=== PATIENT | female | born 1975 | race Asian ===

== ENCOUNTER 2025-08-17 21:44 | Emergency (ER) | payer BC, MEDICAID, SELFPAY ==
[2025-08-17 21:44] VITALS: BMI 41.5
--- NOTE | 2025-08-17 21:49 | XR_ITS ---
Examination: Knee, left, 3 views Technique: Knee AP, lateral, oblique 3 views Date and time of exam: August 17, 2025, 1 2150 hours INDICATIONS: Knee pain 2 weeks getting worse. FINDINGS: Moderate osteopenia Moderate narrowing medial joint space Mild osteoarthritis patellofemoral joint No fracture IMPRESSION: Moderate narrowing medial joint space
--- NOTE | 2025-08-17 21:52 | PD.EDEXREM ---
ED Extremity Problem RME/HPI General Chief complaint: Extremity Problem,Nontraumatic Stated complaint: LEFT KNEE PAIN Time Seen by Provider: 08/17/25 21:58 Arrival date/time: 08/17/25 21:44 RME / HPI RME / HPI Narrative: See MDM for Dr. Avila's HPI documentation. Related Data Home Medications ?Medication ?Instructions ?Recorded ?Confirmed amlodipine 5 mg tablet 5 mg PO QDAY 10/19/22 10/19/22 Previous Rx's ?Medication ?Instructions ?Recorded amoxicillin 875 mg-potassium 1 tab PO Q12H #14 tabs 10/21/22 clavulanate 125 mg tablet hydrocodone 5 mg-acetaminophen 325 1 tab PO Q6H #20 tabs 10/21/22 mg tablet acetaminophen 300 mg-codeine 30 mg 2 tab PO Q8H PRN pain #20 tabs 08/17/25 tablet ibuprofen 800 mg tablet 800 mg PO Q8H PRN pain #30 tabs 08/17/25 lidocaine 5 % topical patch 2 patch topical QDAY PRN pain #30 08/17/25 (Lidoderm) ea Allergies Allergy/AdvReac Type Severity Reaction Status Date / Time No Known Allergies Allergy Verified 09/24/23 23:14 Review of Systems Review of Systems Systems Reviewed: All systems reviewed, normal except as documented Past Medical History Past Medical History NEUROLOGIC: Negative Neurological Disorders or Seizures CARDIAC: Positive Hypertension; Negative Cardiac Disorders or Congestive Heart Failure RESPIRATORY: Negative Chronic Obstructive Pulmonary Disease (COPD) GASTROINTESTINAL: Negative Gastrointestinal Disorders, Hepatitis or Colorectal Cancer GENITOURINARY: Negative Genitourinary Disorders, Renal Disease or Prostate Cancer REPRODUCTIVE: Positive Previous Pregnancies; Negative Breast Cancer, Endometriosis, Pelvic Inflammatory Disease or Uterine Prolapse MUSCULOSKELETAL: Negative Musculoskeletal Disorders or Bone Cancer ENDOCRINE: Positive Endocrine Disorders; Negative Diabetes Mellitus Type 1 or Diabetes Mellitus Type 2 HEMATOLOGIC: Negative Blood Disorders OTHER HISTORY: Negative Hospitalization, Autoimmune Disease, Down Syndrome, Developmental Delay, Shingles, Falls, Blood Transfusions, Blood Transfusion Reaction, Anesthesia Reactions, Organ Transplant, Chemotherapy, Radiation Therapy, Hyperbaric Therapy, MRSA, VRSA, Vancomycin-Resistant Enterococci, Human Immunodeficiency Virus (HIV), Chicken Pox, Measles, Mumps, Rubella (Spanish Measles), Pertussis, Clostridium Difficile, Breast Cancer, Cervical Cancer, Colorectal Cancer, Lung Cancer, Ovarian Cancer or Prostate Cancer Family History FAMILY HISTORY: Positive Family Cardiac Disorders, Family Cancer and Family Surgery; Negative Family Psychiatric Problems, Family Respiratory Disorders, Family Gastrointestinal Problems or Family Anesthesia Reaction Surgical History SURGICAL: Negative Section or Organ Transplant Social History SMOKING STATUS: Never smoker ED Exam Narrative Physical exam: See [facility] for Dr. Avila's physical exam documentation. Course Quality Measures none Orders Category Date Time Status XR knee LT 3V Stat Exams 08/17/25 21:49 Completed Vital Signs Vital signs: Vital Signs Temperature 98.7 F 08/17/25 22:44 Pulse Rate 79 08/17/25 22:44 Respiratory Rate 18 08/17/25 22:44 Blood Pressure 136/88 H 08/17/25 22:44 Pulse Oximetry (%) 97 08/17/25 22:44 Oxygen Delivery Method Room Air 08/17/25 22:44 Extremity Problem MDM Narrative [facility] Narrative:: This section includes all my notes and documentations, including HPI, PE, and ED course. Henrry Avila MD HPI: 50yo female here with worsening left knee pain for the last couple weeks. No falls or injuries. No other complaints reported. ROS: All negative except as documented in HPI. Physical Exam: General: Alert and oriented. No acute distress when remaining still. Eyes: Conjunctivae and lids clear. ENT: No nasal congestion. Neck: Supple. Lungs: No respiratory distress. Skin: Warm and dry. Neuro: Alert and oriented X 3. Left Knee: Equivocal tenderness. Limited range of motion due to pain. No severe edema. I reviewed all diagnostic test results. My interpretation of the left knee x-ray is no acute findings. At this point, diagnoses include: Left knee sprain Recommended a trial of conservative treatment. Based on my best medical judgment, made decision no further evaluation or treatment indicated at this time. Patient understands and agrees to the discharge instructions customized and printed, see below. Discharge Instructions from Dr. Avila: --After evaluation, you sprained your knee. This means small tears to your soft structures, such as [id number]-[id number]-cartilage. --To help the healing process, minimal weight bearing (use a stick/cane in your right hand to take the weight off) and elevate above waist level for 3 days as much as possible. --Take Ibuprofen 800 mg every 6-8 hours today and tomorrow to help decrease swelling then as needed. Tylenol with codeine and lidocaine patches as needed. --Most importantly, see a private doctor on 08/18/2025 for recheck and further care. We are asked for more care not available here in the ER--such as MRI imaging, physical therapy, and a referral to see a specialist. To make sure you don't have major tears needing surgery. --Seek immediate medical care with any concerns. Henrry Avila MD Patient data External records reviewed:: [facility] previous records (Per chart review, patient was seen here on 03/24/24 for calcaneal spur.) Clinical information provided by:: patient Social determinants that could affect healthcare access:: none Patient has the following chronic illnesses:: HTN How is presenting disease/condition affected by chronic disease/condition?: uneffected by Evaluation data The following diagnostics were reviewed and interpreted by me:: radiology exam(s) Lab and/or radiology exams considered but not ordered:: none Interpretation Summary: I reviewed all diagnostic test results. My interpretation of the left knee x-ray is no acute findings. Medications / Prescriptions Medications or Prescriptions considered but not ordered:: none Medication administrations:: none Consultations Consultation(s) initiated? (list below): No Diagnosis Extremity Problem Differential Diagnosis: other (Sprain, strain, contusion, fracture) Most likely diagnosis given after review of the tests above:: Left knee sprain Admission Indicated Admission indicated?: not indicated Explain why admission is indicated or not indicated:: With no condition needing emergent intervention, there was no indication for admission. Admission Request Was there a request for admission?: No Disposition Plan Disposition Plan: Discharge Discharge Attestation Discharge Attestation: The patient and all family members were given an opportunity to ask questions and understood the discharge instructions. Discharge instructions specifically effects, indications for sooner follow up or return to the emergency department, and the expected course of current diagnosis. Patient condition: Stable Discharge Plan Plan Patient Disposition: HOME (Self Care) Prescriptions/Referrals Prescriptions/Med Rec: New ibuprofen 800 mg tablet 800 mg PO Q8H PRN (Reason: pain) Qty: 30 0RF acetaminophen-codeine 300-30 mg tablet 2 tab PO Q8H MDD 6 PRN (Reason: pain) Qty: 20 0RF lidocaine [Lidoderm] 5 % adhesive patch,medicated 2 patch topical QDAY PRN (Reason: pain) Qty: 30 0RF Rx Instructions: leave on most painful area for up to 12 hrs No Action amlodipine 5 mg tablet 5 mg PO QDAY amoxicillin-pot clavulanate 875-125 mg tablet 1 tab PO Q12H Qty: 14 0RF hydrocodone-acetaminophen 5-325 mg tablet 1 tab PO Q6H MDD 4 Qty: 20 0RF Problem List Clinical Impression: Left knee sprain Patient/Caregiver Discharge Instructions Discharge Activity: activity as tolerated Education Materials: ED Knee Sprain Additional Instructions: Discharge Instructions from Dr. Avila: --After evaluation, you sprained your knee.? This means small tears to your soft structures, such as jamppom-vkktyor-vnfvjwuzr-cartilage.? --To help the healing process, minimal weight bearing (use a stick/cane in your right hand to take the weight off) and elevate above waist level for 3 days as much as possible.?? --Take Ibuprofen 800 mg every 6-8 hours today and tomorrow to help decrease swelling then as needed.? Tylenol with codeine and lidocaine patches as needed. --Most importantly, see a private doctor on 08/18/2025 for recheck and further care. We are asked for more care not available here in the ER--such as MRI imaging, physical therapy, and a referral to see a specialist.? To make sure you don't have major tears needing surgery. --Seek immediate medical care with any concerns.?? Print Language: Icelandic Stand Alone Forms: [employer]wige Award Info., Work/School Release, Patient Portal Info Letter
[2025-08-17 22:44] VITALS: BP 136/88; PULSE 79; RESP 18; TEMP 37.1; O2SAT 97
== END 2025-08-17 23:33 | disposition home or self-care (01) ==
PROVIDERS: Emergency Provider Emergency Medicine; PCP Physician Assistant
DX: S83.92XA Sprain of unspecified site of left knee, initial encounter (principal); X58.XXXA Exposure to other specified factors, initial encounter
CPT/HCPCS: 73562; 99282

== ENCOUNTER → 2025-10-15 | Outpatient (CLI) | payer BC, MEDICAID, SELFPAY ==
[2025-10-15 15:46] LABS: Basophils # (Auto) 0.1 Thou/mm3 (0.0-0.2); Basophils % (Auto) 1 % (0-2.5); Eosinophils # (Auto) 0.2 Thou/mm3 (0.0-0.5); Eosinophils % (Auto) 2 % (0-10); Hematocrit 44.2 % (36.0-46.0); Hemoglobin 14.1 g/dL (12.0-16.0); Immature Granulocytes Auto 0.08 Thou/mm3 (0.00-0.00); Lymphocytes # (Auto) 2.6 Thou/mm3 (1.0-4.8); Lymphocytes % (Auto) 24 % (10-50); Mean Corpuscular HGB Conc 31.9 g/dl (31.0-37.0); Mean Corpuscular Hemoglobin 27.6 pg (25.0-35.0); Mean Corpuscular Volume 87 fL (80-100); Monocytes # (Auto) 1.0 Thou/mm3 (0.0-0.8); Monocytes % (Auto) 9 % (0-12); Neutrophils # (Auto) 6.9 Thou/mm3 (1.8-7.7); Neutrophils % (Auto) 64 % (37-80); Nucleated Red Blood Cell # 0.00 Thou/mm3 (0.00-0.00); Nucleated Red Blood Cell % 0 /100 WBC (0); Platelet Count 369 Thou/mm3 (140-440); RDW Standard Deviation 44.0 fL (36.4-46.3); Red Blood Count 5.10 Miln/mm3 (4.00-5.20); White Blood Count 10.8 Thou/mm3 (3.6-11.0)
[2025-10-15 15:59] LABS: Alanine Aminotransferase 26 U/L (10-49); Albumin, Serum 4.6 gm/dL (3.5-5.0); Albumin/Globulin Ratio 1.4 (1.2-2.2); Alkaline Phosphatase 70 U/L (46-116); Anion Gap 10 (7-16); Aspartate Amino Transferase 24 U/L (0-34); BUN/Creatinine Ratio 16 Ratio (12-20); Bilirubin,Total 0.5 mg/dL (0.3-1.2); Blood Urea Nitrogen 11 mg/dL (9-23); Calcium 9.4 mg/dL (8.3-10.6); Calcium (Corrected) 9.4 mg/dL (8.5-10.1); Carbon Dioxide 27.9 mMol/L (20.0-31.0); Chloride 105 mMol/L (98-107); Creatinine (Component) 0.7 mg/dL (0.6-1.3); Globulin 3.2 gm/dL (2.3-3.5); Glucose 130 mg/dL (74-106); Osmolality,Calculated 286 (275-295); Potassium 4.2 mMol/L (3.4-5.1); Sed Rate (ESR) 20 mm/hr (0-20); Sodium 143 mMol/L (136-145); Total Protein 7.8 gm/dL (5.7-8.2); Uric Acid 6.7 mg/dL (3.1-7.8); eGFR > 60 See Note
[2025-10-15 16:19] LABS: RA Screen Negative (Negative)
[2025-10-24 06:48] LABS: ANA Screen, IFA POSITIVE (NEGATIVE); ANA Titer 1:80 titer
== END | disposition home or self-care (01) ==
LOC: COPL 13:08
PROVIDERS: PCP Physician Assistant; Referring Provider Family Medicine; Visit Provider Family Medicine
DX: M25.569 Pain in unspecified knee (principal)
CPT/HCPCS: 36415; 80053; 84550; 85025; 85652; 86038; 86430